=== PATIENT | male | born 1965 | race Caucasian/White ===

== ENCOUNTER 2017-06-02 18:34 | Observation (INO) | payer BC ==
[2017-06-02] MEDS ORDERED: Metoprolol Tartrate TAB* 25 MG PO ONE (19:35)
[2017-06-02] MEDS ORDERED: Nitroglycerin 2% OINT* 1 GM PAK TOPICAL ONE (19:36)
--- NOTE | 2017-06-02 20:12 | RAD ---
INDICATION: Chest pain COMPARISON: Chest x-ray May 24, 2011 TECHNIQUE: Single AP portable view of the chest was obtained. FINDINGS: Image quality is compromised due to the relative inferiority of a portable chest x-ray. The heart and mediastinum exhibit normal size and contour. The lungs are grossly clear. There is no evidence of a large pleural effusion. Visualized bones are normal for the patient's age. IMPRESSION: No radiographic evidence for acute cardiopulmonary abnormality on this portable chest x-ray.
[2017-06-02 20:21] LABS: Hematocrit 47 % (42-52); Hemoglobin 16.5 g/dl (14.0-18.0); Mean Corpuscular HGB Conc 35 g/dl (31-36); Mean Corpuscular Hemoglobin 31 pg (27-31); Mean Corpuscular Volume 89 fL (80-94); Mean Platelet Volume 9 um3 (7.4-10.4); Red Blood Count 5.31 10^6/ul (4.0-5.4); Red Cell Distribution Width 13 % (10.5-15); White Blood Count 6.5 10^3/ul (3.5-10.8)
[2017-06-02 20:35] LABS: Albumin 4.4 g/dL (3.2-5.2); BUN/Creatinine Ratio 16.2 (8-20); Calcium 9.5 mg/dL (8.6-10.3); EGFR African American 142.3 (>60); EGFR Non-African American 110.6 (>60); Globulin 2.3 g/dL (2-4); Potassium 3.6 mmol/L (3.5-5.0); Total Bilirubin 0.8 mg/dL (0.2-1.0); Total Protein 6.7 g/dL (6.4-8.9)
--- NOTE | 2017-06-02 20:54 | RAD ---
INDICATION: Headache and hypertension COMPARISON: None. TECHNIQUE: Contiguous axial sections of the brain were obtained from the skull base to the vertex without contrast. FINDINGS: The ventricles, cisterns and sulci are within normal limits. The edwards-white matter differentiation is adequately maintained and there is no sulcal effacement. No significant focal abnormality or mass effect is present. There is no evidence for intracranial hemorrhage. No significant focal osseous abnormality is present. The visualized portion of the paranasal sinuses and mastoid air cells appear clear. IMPRESSION: Normal CT of the brain.
--- NOTE | 2017-06-02 20:58 | ED ---
Niles Dee Rebecca, scribed for Esteban Buenrostro MD on 06/02/17 at 1928 . Hypertension - HPI Summary HPI Summary: Pt is a 51 y/o M who presents to ED c/o hypertension. When the pt took his BP STAND UP COMEDIAN at [facility] it was 198/102. He then called his PCP and was advised to be evaluated by [facility] ED if his sx did not improve or experienced chest pressure. He then began experiencing chest pressure, which prompted his visit. He c/o bilateral LE heaviness, palpitations, chest pressure, fatigue (1 week) and feeling "off kilter." Pt reports that he has felt off balanced since waking up at approximately 0700 this morning. Denies SOB, abd pain, acute back pain, weakness and vision, speech or hearing changes. PMHx HTN. - History of Current Complaint Chief Complaint: EDHypertension Stated Complaint: HIGH BP Time Seen by Provider: 06/02/17 19:20 Hx Obtained From: Patient Onset/Duration: Still Present Reported Blood Pressure Prior To Arrival: 198/102 Aggravating Factor(s): Nothing Alleviating Factor(s): Nothing Associated Signs & Symptoms: Other: - chest pressure, palpitations - Allergies/Home Medications Allergies/Adverse Reactions: Allergies Allergy/AdvReac Type Severity Reaction Status Date / Time No Known Allergies Allergy Verified 06/02/17 18:36 PMH/Surg Hx/FS Hx/Imm Hx Endocrine/Hematology History: Denies: Hx Diabetes, Hx Thyroid Disease Cardiovascular History: Reports: Hx Hypertension Denies: Hx Pacemaker/ICD Respiratory History: Denies: Hx Asthma, Hx Chronic Obstructive Pulmonary Disease (COPD) GI History: Denies: Hx Ulcer Sensory History: Denies: Hx Hearing Aid Neurological History: Reports: Hx Headaches Psychiatric History: Denies: Hx Panic Disorder - Surgical History Surgery Procedure, Year, and Place: hernia repair; vasectomy; wisdom teeth Infectious Disease History: No Infectious Disease History: Denies: Hx Hepatitis, Hx Human Immunodeficiency Virus (HIV), History Other Infectious Disease, Traveled Outside the [place] in Last 30 Days - Family History Known Family History: Positive: Cardiac Disease, Hypertension, Diabetes - Social History Alcohol Use: Weekly Substance Use Type: Reports: None Smoking Status (MU): Former Smoker Type: Cigarettes Have You Smoked in the Last Year: No Review of Systems Positive: Fatigue, Other - Hypertensive - 198/102 STAND UP COMEDIAN Positive: Other - NEGATIVE: hearing changes Positive: Other - NEGATIVE: hearing changes Positive: Palpitations, Other - Chest pressure Negative: Shortness Of Breath Negative: Abdominal Pain Positive: Other - Bilateral LE heaviness; NEGATIVE: acute back pain Neurological: Other - Off balanced - "off kilter"; NEGATIVE: speech changes Negative: Weakness All Other Systems Reviewed And Are Negative: Yes Physical Exam Triage Information Reviewed: Yes Vital Signs On Initial Exam: Initial Vitals Temp Pulse Resp BP Pulse Ox 98.1 F 86 16 140/99 96 06/02/17 18:36 06/02/17 18:36 06/02/17 18:36 06/02/17 18:36 06/02/17 18:36 Appearance: Positive: Well-Appearing, No Pain Distress Skin: Positive: Warm Head/Face: Positive: Normal Head/Face Inspection Eyes: Positive: EOMI ENT: Positive: Normal ENT inspection Respiratory/Lung Sounds: Positive: Clear to Auscultation, Breath Sounds Present Cardiovascular: Positive: RRR. Negative: Murmur Abdomen Description: Positive: Nontender Musculoskeletal: Positive: Strength/ROM Intact Neurological: Positive: Sensory/Motor Intact, Alert, Oriented to Person Place, Time, CN Intact II-III Psychiatric: Positive: Normal - Delbert Coma Scale Coma Scale Total: 15 Diagnostics - Vital Signs Vital Signs Temp Pulse Resp BP Pulse Ox 06/02/17 19:13 98.5 F 71 15 139/94 95 06/02/17 19:00 66 133/91 06/02/17 18:47 72 153/91 06/02/17 18:46 74 96 06/02/17 18:36 98.1 F 86 16 140/99 96 - Laboratory Lab Results: Lab Results 06/02/17 06/02/17 06/02/17 Range/Units 20:08 20:08 20:08 WBC 6.5 (3.5-10.8) 10^3/ul RBC 5.31 (4.0-5.4) 10^6/ul Hgb 16.5 (14.0-18.0) g/dl Hct 47 (42-52) % MCV 89 (80-94) fL MCH 31 (27-31) pg MCHC 35 (31-36) g/dl RDW 13 (10.5-15) % Plt Count 180 (150-450) 10^3/ul MPV 9 (7.4-10.4) um3 Neut % (Auto) 59.0 (38-83) % Lymph % (Auto) 29.3 (25-47) % [place] % (Auto) 7.9 (1-9) % Eos % (Auto) 2.8 (0-6) % Baso % (Auto) 1.0 (0-2) % Absolute Neuts (auto) 3.8 (1.5-7.7) 10^3/ul Absolute Lymphs (auto) 1.9 (1.0-4.8) 10^3/ul Absolute Monos (auto) 0.5 (0-0.8) 10^3/ul Absolute Eos (auto) 0.2 (0-0.6) 10^3/ul Absolute Basos (auto) 0.1 (0-0.2) 10^3/ul Absolute Nucleated RBC 0.01 10^3/ul Nucleated RBC % 0.1 INR (Anticoag Therapy) 0.94 (0.89-1.11) Sodium 140 (133-145) mmol/L Potassium 3.6 (3.5-5.0) mmol/L Chloride 107 (101-111) mmol/L Carbon Dioxide 26 (22-32) mmol/L Anion Gap 7 (2-11) mmol/L BUN 12 (6-24) mg/dL Creatinine 0.74 (0.67-1.17) mg/dL Est GFR ( Amer) 142.3 (>60) Est GFR (Non-Af Amer) 110.6 (>60) BUN/Creatinine Ratio 16.2 (8-20) Glucose 99 (70-100) mg/dL Lactic Acid (0.5-2.0) mmol/L Calcium 9.5 (8.6-10.3) mg/dL Total Bilirubin 0.80 (0.2-1.0) mg/dL AST 18 (13-39) U/L ALT 10 (7-52) U/L Alkaline Phosphatase 75 (34-104) U/L Troponin I 0.00 (<0.04) ng/mL Total Protein 6.7 (6.4-8.9) g/dL Albumin 4.4 (3.2-5.2) g/dL Globulin 2.3 (2-4) g/dL Albumin/Globulin Ratio 1.9 (1-3) // Range/Units 20:08 WBC (3.5-10.8) 10^3/ul RBC (4.0-5.4) 10^6/ul Hgb (14.0-18.0) g/dl Hct (42-52) % MCV (80-94) fL MCH (27-31) pg MCHC (31-36) g/dl RDW (10.5-15) % Plt Count (150-450) 10^3/ul MPV (7.4-10.4) um3 Neut % (Auto) (38-83) % Lymph % (Auto) (25-47) % [place] % (Auto) (1-9) % Eos % (Auto) (0-6) % Baso % (Auto) (0-2) % Absolute Neuts (auto) (1.5-7.7) 10^3/ul Absolute Lymphs (auto) (1.0-4.8) 10^3/ul Absolute Monos (auto) (0-0.8) 10^3/ul Absolute Eos (auto) (0-0.6) 10^3/ul Absolute Basos (auto) (0-0.2) 10^3/ul Absolute Nucleated RBC 10^3/ul Nucleated RBC % INR (Anticoag Therapy) (0.89-1.11) Sodium (133-145) mmol/L Potassium (3.5-5.0) mmol/L Chloride (101-111) mmol/L Carbon Dioxide (22-32) mmol/L Anion Gap (2-11) mmol/L BUN (6-24) mg/dL Creatinine (0.67-1.17) mg/dL Est GFR ( Amer) (>60) Est GFR (Non-Af Amer) (>60) BUN/Creatinine Ratio (8-20) Glucose (70-100) mg/dL Lactic Acid 0.6 (0.5-2.0) mmol/L Calcium (8.6-10.3) mg/dL Total Bilirubin (0.2-1.0) mg/dL AST (13-39) U/L ALT (7-52) U/L Alkaline Phosphatase (34-104) U/L Troponin I (<0.04) ng/mL Total Protein (6.4-8.9) g/dL Albumin (3.2-5.2) g/dL Globulin (2-4) g/dL Albumin/Globulin Ratio (1-3) Result Diagrams: 06/02/17 20:08 06/02/17 20:08 Lab Statement: Any lab studies that have been ordered have been reviewed, and results considered in the medical decision making process. - Radiology CXR Xray Interpretation: No Acute Changes - No radiographic evidence for acute cardiopulmonary abnormality on this portable chest x-ray. Radiology Interpretation Completed By: Radiologist - CT Brain CT CT Interpretation: No Acute Changes - Normal CT of the brain. CT Interpretation Completed By: Radiologist - EKG 185 Cardiac Rate: NL - 74 bpm EKG Rhythm: Sinus Rhythm EKG Interpretation: No acute changes Re-Evaluation - Re-Evaluation First Eval Re-Evaluation Time: 20:19 Comment: Pt is doing well, reports a very slight pressure in the chest. Hypertension Course/Dx - Course Course Of Treatment: 51 yr old male with chest pain and elevated bp. DW Dr Unger. Admit for further eval obs. Assessment/Plan: Elevated BP noted and advised to f/u with PCP. - Diagnoses Provider Diagnoses: Chest pain - Physician Notifications Discussed Care Of Patient With: Jose Unger Time Discussed With Above Provider: 20:48 Instructed by Provider To: Other - Accepts pt for admission. Discharge - Discharge Plan Condition: Good Disposition: ADMITTED TO [facility] The documentation as recorded by the Niles wood Rebecca accurately reflects the service I personally performed and the decisions made by , Esteban Buenrostro MD.
[2017-06-02] MEDS ORDERED: Acetaminophen TAB* 325 MG PO PRN (21:22)
[2017-06-02] MEDS ORDERED: Ondansetron INJ* 2 MG/ML VIAL IV PRN (21:22)
[2017-06-02] MEDS ORDERED: Aspirin Low Dose CHEW TAB* 81 MG PO ONE (21:28)
--- NOTE | 2017-06-03 00:14 | HP ---
HISTORY AND PHYSICAL: DATE OF ADMISSION: 06/02/17 PRIMARY CARE PROVIDER: None. ATTENDING PHYSICIAN WHILE IN THE HOSPITAL: Dr. Jose Unger * (report dictated by Chris Phillips NP). CHIEF COMPLAINT: 1. Chest pain 2. Elevated blood pressure. HISTORY OF PRESENT ILLNESS: Mr. Iniguez is a 51-year-old male patient who has a history of recent diagnosis of hypertension, ADHD, and history of chronic back pain. He comes in, he says he noticed in March in his urology appointment his blood pressures were in the 170s. He wished to seek follow up with his primary; unfortunately, his primary retired and he had not had a chance to seek care with a new primary. He was at [facility] today at the pharmacy, he thought he would check his blood pressure and it was noted to be 198/107. He called [facility] to try to establish today. They actually got him an appointment for tomorrow and the patient was instructed that should he start having any other discomfort, headache, chest pain, he should be evaluated immediately at the ER. Around 3 o'clock today, he started having some chest pressure. He described it as tightness, someone sitting on his chest that lasted several minutes. He was concerned and he started getting headache. He came into the ER to be evaluated for this. He denies having any recent trips or travel. No calf pain , leg pain. No swelling or tenderness. He denied having any associated nausea or vomiting, no diaphoresis. He says that the headache is now gone and the chest pain is now gone that his blood pressure is little bit better controlled. He says he has not been having any other symptoms, no trouble or difficulty with urination. He said that he has had heaviness with exertion. He came in, he was evaluated, it was noted that he has a former history of smoking. In addition to this, he had a family history, so we were asked to evaluate for admission. PAST MEDICAL HISTORY: Significant for: 1. Hypertension. 2. ADHD. 3. Chronic back pain. PAST SURGICAL HISTORY: He has had: 1. Hernia repair. 2. Vasectomy. MEDICATIONS: His home meds according to the list include: 1. Klonopin 0.5 mg p.o. daily as needed. 2. Oxcarbazepine 600 mg p.o. b.i.d. ALLERGIES TO MEDICATIONS: Include no known drug allergies. FAMILY HISTORY: Mother had a history of [place], CAD, CVA, and hyperlipidemia. The father had history of cancer. SOCIAL HISTORY: He is a former smoker, rarely drinks alcohol. His surrogate decision maker is his significant other, Ellen. REVIEW OF SYSTEMS: There is no documented fever. He denied having any significant weight change. There was no double vision. He denies having any ear discharge. There is no rhinorrhea. There is no sore throat. No thyroid enlargement. He denies chest pain currently. He did have some from my HPI. No shortness of breath, no orthopnea, no nocturnal dyspnea. There was no abdominal pain. No nausea, no vomiting. No dysuria, no frequency. There was no loss of consciousness. No pruritus and no skin ulcerations. Review of 14 systems completed, all others negative. PHYSICAL EXAMINATION GENERAL: At this time, Mr. Iniguez is a 51-year-old male patient. He appears to be well nourished, well developed. He does not appear to be in any acute distress. VITAL SIGNS: Reveal blood pressure 137/88, pulse 61, respirations 15, O2 sat 95 %, temperature 98.5. HEENT: Head: Atraumatic, normocephalic. Eyes: EOMs are intact. Sclerae anicteric. Throat: Oral mucosa appears to be moist. No oropharyngeal erythema. NECK: Supple. LUNGS: Clear to auscultation. No wheezes, rales, or rhonchi. HEART: Sounds S1, S2. Regular rate and rhythm. No murmurs, rubs, or gallops. ABDOMEN: Soft, flat, nontender. Bowel sounds present. EXTREMITIES: Pulses 2+ throughout. Able to move all 4 extremities with 5/5 strength. NEUROLOGIC: The patient is awake, alert, and oriented x3. Tongue midline. Household Chores equal. No gross focal deficits. SKIN: Grossly intact. DIAGNOSTIC STUDIES/LAB DATA: Labs revealed WBC 6.5, RBC of 5.31, hemoglobin 16.5, hematocrit 47, platelet count 180. INR 0.94. Sodium 140, potassium 3.6, chloride of 107, bicarb 26, BUN 12, creatinine 0.74, glucose 99, lactate 0.6, calcium 9.5. Total bili 0.8, AST 18, ALT 10, alk phos 75. Troponin 0. Albumin 4.4. He did have an EKG obtained today, which showed normal sinus rhythm with a rate of 74. No ST elevations or T-wave inversions were noted. He had a chest x-ray obtained today, which showed no radiographic evidence of acute cardiopulmonary abnormality on this portable x-ray. Brain CT showed a normal CT of the brain. EKG is reviewed. His previous EKG does appear to be similar. Old medical records reviewed. ASSESSMENT AND PLAN: Mr. Iniguez is a 51-year-old male patient coming into the ER today with complaints of chest discomfort, not feeling well, and having elevated blood pressure. He will be admitted under observation status for: 1. Chest pain. At this point, he does have significant risk factors for coronary artery disease. My plan is, I will go ahead and give him an aspirin. His chest pain is gone now. I am actually going to remove his nitro paste; if it comes back, we will reapply the paste. He did get a beta evan here in ED. We will continue to monitor him, cycle his troponins, we will check a stress test in the morning, place him on telemetry, serial EKGs, check an A1c, and lipid panel in the morning. 2. Hypertension. It is not well controlled at this point. He will need a primary to follow. I think starting him on Norvasc will be a good choice, as he is very active, I do not want to start him on a beta evan. Could consider hydrochlorothiazide, but again I am going to stick with Norvasc at this point for the patient and start this tomorrow and I will continue to monitor. 3. Attention deficit hyperactivity disorder. Continue meds as prescribed. 4. Chronic back pain. Continue meds as prescribed. P.r.n. Tylenol has been ordered. 5. DVT prophylaxis. He is lower risk. He will be placed on SCDs. 6. Code status. He is full code. 7. Fluids, electrolytes, and nutrition. Heart healthy diet and n.p.o. after midnight. TIME SPENT: On the admission was approximately 60 minutes, greater than half the time was spent [id number] with the patient obtaining my history and physical; the other half time was spent going over the plan of care with the patient and implementing the plan of care. I did discuss the plan of care with my attending, Dr. Unger; he is in agreement. CHRIS PHILLIPS, CHENG [id number]/[facility] #: [id number] [facility]ITAL[facility]
[2017-06-03 05:33] LABS: Hematocrit 46 % (42-52); Hemoglobin 15.9 g/dl (14.0-18.0); Mean Corpuscular HGB Conc 35 g/dl (31-36); Mean Corpuscular Hemoglobin 31 pg (27-31); Mean Corpuscular Volume 89 fL (80-94); Mean Platelet Volume 9 um3 (7.4-10.4); Red Blood Count 5.11 10^6/ul (4.0-5.4); Red Cell Distribution Width 13 % (10.5-15); White Blood Count 5.6 10^3/ul (3.5-10.8)
[2017-06-03 05:49] LABS: BUN/Creatinine Ratio 18.7 (8-20); Calcium 8.9 mg/dL (8.6-10.3); EGFR African American 140.1 (>60); EGFR Non-African American 108.9 (>60); HDL Cholesterol 44.8 mg/dL; Potassium 3.7 mmol/L (3.5-5.0)
[2017-06-03] MEDS ORDERED: amLODIPine TAB* 5 MG PO SCH ×2 (09:00→14:00)
[2017-06-03] MEDS ORDERED: Aspirin Low Dose CHEW TAB* 81 MG PO SCH (09:00)
[2017-06-03] MEDS ORDERED: OXcarbazepine TAB(*) 300 MG PO SCH (09:00)
[2017-06-03 13:20] VITALS: BP 122/75
--- NOTE | 2017-06-03 14:17 | RAD ---
Edited for charges. INDICATION: Chest pain. COMPARISON: No relevant prior exams available on the [facility] [place] for comparison. TECHNIQUE: 10.860 mCi of Tc-99m Myoview were administered IV. SPECT images of the heart were obtained. Later on the same day. Under the direction of Dr. Laughlin, an exercise stress test was performed. The patient achieved a peak heart rate of 150 bpm, 90 % of the age- predicted maximum. Subsequently, the patient was given an IV injection of 25.800 mCi Tc- 99m Myoview. SPECT images of the heart were obtained and a gated wall motion study was performed. FINDINGS: Gated wall motion images were obtained at stress and demonstrate very mild septal and inferior wall hypokinesia. The calculated left ventricular ejection fraction is 58 % at stress. Estimated LEFT ventricular end diastolic volume is 85 mL. TID 0.92. Diaphragmatic attenuation noted. Based on review of the attenuation corrected and non corrected images the distribution of radiopharmaceutical within the myocardium on the stress and rest images is within normal limits. No fixed or reversible regions of hypoperfusion evident. IMPRESSION: 1. Very mild septal and inferior wall hypokinesia. The LEFT ventricular ejection fraction remains within normal range. 2. No compelling evidence for stress-induced ischemia or presence of an infarct. ASSESSMENT: LOW RISK. Based on imaging criteria from ACC/AHA 2002 Guideline Update for the Management of Patients With Chronic Stable Angina Table 23. Noninvasive Risk Stratification. MTDD
--- NOTE | 2017-06-03 14:48 | DCNOTE ---
Subjective Date of Service: 06/03/17 Interval History: No more chest discomfort. He usually walks for an hour a few times a week, never had chest discomfort while walking. Quit smoking 25 yrs ago. Objective Active Medications: Acetaminophen (Tylenol Tab*) 650 mg PO Q4H PRN PRN Reason: FEVER/PAIN Aspirin (Aspirin Low Dose Tab*) 81 mg PO DAILY [facility] Last Admin: 06/03/17 13:54 Dose: 81 mg Ondansetron HCl (Zofran Inj*) 4 mg IV Q6H PRN PRN Reason: NAUSEA Oxcarbazepine (Trileptal Tab(*)) 600 mg PO BID [facility] Last Admin: 06/03/17 13:54 Dose: 600 mg Vital Signs 06/02/17 06/02/17 06/03/17 21:30 22:07 00:09 Temperature 98.4 F 97.9 F Pulse Rate 66 58 62 Respiratory 16 18 16 Rate Blood Pressure 132/82 126/89 126/76 (mmHg) O2 Sat by Pulse 93 94 98 Oximetry 06/03/17 06/03/17 06/03/17 04:06 07:33 11:11 Temperature 98.1 F 98.3 F 98.2 F Pulse Rate 59 62 51 Respiratory 16 16 16 Rate Blood Pressure 127/75 137/83 122/75 (mmHg) O2 Sat by Pulse 97 95 96 Oximetry Appearance: Alert, sitting on the edge of his bed. In good spirits. Looks comfortable. Neck: NL Appearance and Movements; NL JVP, No Thyroid Enlargement, Masses Extremities: No Edema, No Clubbing, Cyanosis, - Skin: No Rash or Ulcers, No Nodules or Sclerosis, - Neurological: Alert and Oriented x 3, NL Sensation Result Diagrams: 06/03/17 04:41 06/03/17 04:41 Additional Lab and Data: Lab Results 06/02/17 06/02/17 06/02/17 Range/Units 20:08 20:08 20:08 WBC 6.5 (3.5-10.8) 10^3/ul RBC 5.31 (4.0-5.4) 10^6/ul Hgb 16.5 (14.0-18.0) g/dl Hct 47 (42-52) % MCV 89 (80-94) fL MCH 31 (27-31) pg MCHC 35 (31-36) g/dl RDW 13 (10.5-15) % Plt Count 180 (150-450) 10^3/ul MPV 9 (7.4-10.4) um3 Neut % (Auto) 59.0 (38-83) % Lymph % (Auto) 29.3 (25-47) % [place] % (Auto) 7.9 (1-9) % Eos % (Auto) 2.8 (0-6) % Baso % (Auto) 1.0 (0-2) % Absolute Neuts (auto) 3.8 (1.5-7.7) 10^3/ul Absolute Lymphs (auto) 1.9 (1.0-4.8) 10^3/ul Absolute Monos (auto) 0.5 (0-0.8) 10^3/ul Absolute Eos (auto) 0.2 (0-0.6) 10^3/ul Absolute Basos (auto) 0.1 (0-0.2) 10^3/ul Absolute Nucleated RBC 0.01 10^3/ul Nucleated RBC % 0.1 INR (Anticoag Therapy) 0.94 (0.89-1.11) Sodium 140 (133-145) mmol/L Potassium 3.6 (3.5-5.0) mmol/L Chloride 107 (101-111) mmol/L Carbon Dioxide 26 (22-32) mmol/L Anion Gap 7 (2-11) mmol/L BUN 12 (6-24) mg/dL Creatinine 0.74 (0.67-1.17) mg/dL Est GFR ( Amer) 142.3 (>60) Est GFR (Non-Af Amer) 110.6 (>60) BUN/Creatinine Ratio 16.2 (8-20) Glucose 99 (70-100) mg/dL Lactic Acid (0.5-2.0) mmol/L Calcium 9.5 (8.6-10.3) mg/dL Total Bilirubin 0.80 (0.2-1.0) mg/dL AST 18 (13-39) U/L ALT 10 (7-52) U/L Alkaline Phosphatase 75 (34-104) U/L Troponin I 0.00 (<0.04) ng/mL Total Protein 6.7 (6.4-8.9) g/dL Albumin 4.4 (3.2-5.2) g/dL Globulin 2.3 (2-4) g/dL Albumin/Globulin Ratio 1.9 (1-3) / Range/Units 20:08 WBC (3.5-10.8) 10^3/ul RBC (4.0-5.4) 10^6/ul Hgb (14.0-18.0) g/dl Hct (42-52) % MCV (80-94) fL MCH (27-31) pg MCHC (31-36) g/dl RDW (10.5-15) % Plt Count (150-450) 10^3/ul MPV (7.4-10.4) um3 Neut % (Auto) (38-83) % Lymph % (Auto) (25-47) % [place] % (Auto) (1-9) % Eos % (Auto) (0-6) % Baso % (Auto) (0-2) % Absolute Neuts (auto) (1.5-7.7) 10^3/ul Absolute Lymphs (auto) (1.0-4.8) 10^3/ul Absolute Monos (auto) (0-0.8) 10^3/ul Absolute Eos (auto) (0-0.6) 10^3/ul Absolute Basos (auto) (0-0.2) 10^3/ul Absolute Nucleated RBC 10^3/ul Nucleated RBC % INR (Anticoag Therapy) (0.89-1.11) Sodium (133-145) mmol/L Potassium (3.5-5.0) mmol/L Chloride (101-111) mmol/L Carbon Dioxide (22-32) mmol/L Anion Gap (2-11) mmol/L BUN (6-24) mg/dL Creatinine (0.67-1.17) mg/dL Est GFR ( Amer) (>60) Est GFR (Non-Af Amer) (>60) BUN/Creatinine Ratio (8-20) Glucose (70-100) mg/dL Lactic Acid 0.6 (0.5-2.0) mmol/L Calcium (8.6-10.3) mg/dL Total Bilirubin (0.2-1.0) mg/dL AST (13-39) U/L ALT (7-52) U/L Alkaline Phosphatase (34-104) U/L Troponin I (<0.04) ng/mL Total Protein (6.4-8.9) g/dL Albumin (3.2-5.2) g/dL Globulin (2-4) g/dL Albumin/Globulin Ratio (1-3) Assess/Plan/Problems-Billing Assessment: - Patient Problems (1) Atypical chest pain Current Visit: Yes Status: Acute Code(s): R07.89 - OTHER CHEST PAIN SNOMED Code(s): 298226345 Comment: Patient to followup with new PCP. I explained the process of evaluating an outpatient for the diagnosis of hypertension. He prefers to wait on anti-hypertensive medicine until a definitive diagnosis is made. (2) ADHD Current Visit: Yes Status: Acute Comment: Continue home med.
--- NOTE | 2017-06-04 06:06 | DS ---
CC: Dr. Dunham * DISCHARGE SUMMARY: DATE OF ADMISSION: DATE OF DISCHARGE: 06/03/17 HISTORY OF PRESENT ILLNESS: This 51-year-old man presented with atypical chest pain and elevated blood pressure. He had a feeling of malaise the day of admission. Recently had been for routine visit at the urologist office and was told his blood pressure was high, he did not have the number. He said all his life, whenever he had been to a doctor's office, says his blood pressure has always been good. As mentioned above, the patient had some malaise. He went to [facility] to get his prescription for his usual ADHD medicine. He has blood pressure measured there and got blood pressure of 198/107. According to the record here, his blood pressure may have been in the 170s in March in the Urology office. He was advised over the phone that if he had headache or chest pain, he should go to the emergency room. About few hours after that, he developed headache and chest pressure and went to the emergency room. He was monitored on the telemetry unit. His EKG was within normal limits. He had 3 troponin levels, all of which were normal. He underwent a nuclear stress test on the day of discharge. This showed a normal left ventricular ejection fraction and no fixed or reversible areas of hypoperfusion. He had no further symptoms in the hospital. He did get doses of oral metoprolol and some nitro paste in the emergency room. His blood pressure the second hospital morning was 137/83. At 11 o'clock, it was 122/75. Following that, he had a stress test at which time he says his blood pressures were little high and following that on return to the medical floor, he received amlodipine 5 mg. I discussed with the patient the process of evaluating in outpatient for the diagnosis of hypertension. He prefers not to take any antihypertensive medication until a definitive diagnosis has been made. He has an appointment with Dr. Dunham on 06/19/17, which we made. FINAL DIAGNOSES: 1. Atypical chest pain. 2. Attention deficit hyperactivity disorder. DISCHARGE MEDICATIONS: 1. Oxcarbazepine 600 mg b.i.d. 2. Klonopin 0.5 mg p.r.n. [id number]/[facility] #: [id number] [facility]
== END 2017-06-03 15:19 | disposition home or self-care (01) ==
LOC: ED 18:34 → MEDTELE 21:20
PROVIDERS: ADMIT Hospitalist; ATTEND Internal Medicine
DX: R07.89 Other chest pain (principal); F90.9 Attention-deficit hyperactivity disorder, unspecified type; I10 Essential (primary) hypertension; R51 Headache; Z87.891 Personal history of nicotine dependence; M54.9 Dorsalgia, unspecified; R00.2 Palpitations; Z79.899 Other long term (current) drug therapy
CPT/HCPCS: 36415; 70450; 71010; 78452; 80048; 80053; 80061; 83036; 83605; 84484; 85025; 85610; 93005; 93017; 96374; 99284; A9270-GY; A9502; G0378

== ENCOUNTER 2017-10-04 14:15 | Observation (INO) | payer BC ==
[2017-10-04] MEDS ORDERED: NS 0.9% 1000 ML* 1,000 ML IV ONE ×2 (14:44→17:28)
[2017-10-04] MEDS ORDERED: methylPREDNISolone 125 MG* 2 ML VIAL IV ONE (14:44)
[2017-10-04] MEDS ORDERED: Albuterol/Ipratropium NEB.SOL* Albuterol 2.5 MG/Ipratropium 0.5 MG 3 ML INH ONE ×2 (14:44→16:04)
[2017-10-04 14:47] LABS: ABS Basophils 0 10^3/ul (0-0.2); ABS Eosinophils 0 10^3/ul (0-0.6); ABS Lymphocytes 0.7 10^3/ul (1.0-4.8); ABS Monocytes 0.5 10^3/ul (0-0.8); ABS Neutrophils 4.1 10^3/ul (1.5-7.7); ABS Nucleated RBC 0.01 10^3/ul; Eosinophil % 0.7 % (0-6); Hematocrit 45 % (42-52); Lymphocyte % 12.3 % (25-47); Mean Corpuscular HGB Conc 36 g/dl (31-36); Mean Corpuscular Hemoglobin 31 pg (27-31); Mean Corpuscular Volume 88 fL (80-94); Mean Platelet Volume 8 um3 (7.4-10.4); Nucleated Red Blood Cells % 0.2; Platelet Count 187 10^3/ul (150-450); Red Blood Count 5.09 10^6/ul (4.0-5.4); Red Cell Distribution Width 13 % (10.5-15); White Blood Count 5.4 10^3/ul (3.5-10.8)
[2017-10-04 15:04] LABS: EGFR Non-African American 105.7 (>60)
--- NOTE | 2017-10-04 16:13 | RAD ---
Indication: Shortness of breath. 2 views of the chest including dual energy PA views demonstrate no mediastinal shift. Heart is of normal size and configuration. Lung de jesus are clear. IMPRESSION: No active cardiopulmonary disease is noted.
[2017-10-04] MEDS ORDERED: Ondansetron INJ* 2 MG/ML VIAL IV ONE (16:48)
[2017-10-04] MEDS ORDERED: Acetaminophen TAB* 325 MG PO PRN (17:28)
[2017-10-04] MEDS ORDERED: Ondansetron INJ* 2 MG/ML VIAL IV PRN (17:28)
[2017-10-04] MEDS ORDERED: Albuterol 2.5 MG/3 ML NEB.SOL* (0.083%) INH PRN (17:28)
[2017-10-04] MEDS ORDERED: NS 0.9% 1000 ML* 1,000 ML IV SCH (17:30)
[2017-10-04] MEDS ORDERED: Iohexol 350* (CONTRAST) 500 ML MDV IV ONE (17:55)
--- NOTE | 2017-10-04 18:18 | RAD ---
Indication: Hypoxia, shortness of breath. Contrast: Administered 82.1 ml of OMNIPAQUE 350 mg/ml CTA of the chest was performed after IV contrast administration. Coronal and sagittal reconstructed images were obtained. The pulmonary arterial tree demonstrates no evidence of filling defects to suggest pulmonary embolus. The aorta demonstrates no evidence of aortic dissection. No aneurysmal dilatation is noted. There is no mediastinal or hilar adenopathy. The trachea and major bronchi appear patent. There is airspace disease in the right suprahilar area of the right lower lobe which may represent pneumonia. Consolidation is noted. No focal nodules are identified. The visualized abdominal organs are otherwise unremarkable. IMPRESSION: No definite evidence of pulmonary embolus is noted. Area of consolidation in the right upper lobe posteriorly.
[2017-10-04] MEDS ORDERED: Azithromycin IV(*) 250 MG in D5W 250 ML BAG* 250 ML IVPB SCH (18:30)
[2017-10-04] MEDS: predniSONE TAB* 20 MG PO SCH (19:13)
[2017-10-04] MEDS: OXcarbazepine TAB(*) 300 MG PO SCH (19:13)
[2017-10-04] MEDS ORDERED: cefTRIAXone(*) 1 GM in NS 0.9% 50 ML* 50 ML IVPB SCH (19:30)
[2017-10-04] MEDS: Albuterol/Ipratropium NEB.SOL* Albuterol 2.5 MG/Ipratropium 0.5 MG 3 ML INH SCH ×2 (19:46→23:35)
[2017-10-04 19:55] LABS: Urine Appearance Clear; Urine Blood Negative (Negative); Urine Color Straw; Urine Ketones Negative (Negative); Urine Protein Negative (Negative); Urine Specific Gravity 1.004 (1.010-1.030); Urine Urobilinogen Negative (Negative)
[2017-10-04] MEDS ORDERED: Acetaminop/Codeine 30 MG TAB* 1 TAB (300 MG/30 MG) PO PRN (21:24)
[2017-10-04] MEDS: Heparin VIAL(*) 5000 UNITS/ML VIAL (FIVE THOUSAND) SUBCUT SCH (21:36)
--- NOTE | 2017-10-05 00:21 | HP ---
CC: Dr. Vides * HISTORY AND PHYSICAL: DATE OF ADMISSION: 10/04/17 PRIMARY CARE PROVIDER: Dr. Vides. ATTENDING PHYSICIAN WHILE IN THE HOSPITAL: Dr. Nico Joshi * (report dictated by Chris Corral NP) CHIEF COMPLAINT: 1. Cough. 2. Shortness of breath. 3. Not feeling well. HISTORY OF PRESENT ILLNESS: Mr. Iniguez is a 51-year-old male patient who comes into the ED today. He says that since last week, he just has not been feeling well. He has had a cough, productive of yellow-type sputum. He says when he lies flat at night, he has been feeling more short of breath, has been waking up at the middle of the night gasping for air. He says that he has been tired, weak, fatigued feeling. He says had kind of aching all over and feeling nauseous. He also has been feeling dizzy. He has had decreased appetite. Denied any nausea, vomiting. He went to his primary, he was started on azithromycin. He was not feeling better. He called his primary today and they referred him to the ER to get a further imaging with an x-ray. He denies having any chest pain with the exception when he is coughing. He denies having any reported fevers, but he does say that he has been feeling chills. He says that he just was not getting any better, so he came in today. He was evaluated here in the ED. It was noted his O2 saturations were right around 92%. There was concern that he may have bronchitis and it was noted that he was wheezing on exam, so we were asked to evaluate for admission. PAST MEDICAL HISTORY: Significant for: 1. Hypertension. 2. ADHD. 3. Chronic back pain. PAST SURGICAL HISTORY: He has had: 1. Hernia repair. 2. Vasectomy. MEDICATIONS: Home meds include: 1. Oxcarbazepine 600 mg p.o. b.i.d. 2. Klonopin 0.5 mg p.o. daily as needed. ALLERGIES TO MEDICATIONS: No known drug allergies. FAMILY HISTORY: Mother had a history of GA, CAD, and CVA. Father had history of cancer. SOCIAL HISTORY: He is a former smoker, he quit 35 years ago. Rarely drinks alcohol. His surrogate decision maker is his girlfriend, Ellen. REVIEW OF SYSTEMS: There is no documented fever here. He has to having chills. He denies have any double vision. There is no ear discharge. There was some rhinorrhea. Denies any congestion. He does admit to having a cough. He does state that he has been aching. He does admit to feeling nauseous now. Denies having any abdominal pain. Denies having any loss of consciousness. No pruritus and no skin ulcerations. Review of 14 systems completed, all others negative. PHYSICAL EXAMINATION GENERAL: At this time, Mr. Iniguez is a 51-year-old male patient. He appears to be well nourished, well developed. He is sitting in the ED stretcher. He does not appear to be in any acute distress. VITAL SIGNS: Blood pressure 152/91, pulse 82, respirations 18, O2 sat 94%, temperature 99. HEENT: Head: Atraumatic, normocephalic. Eyes: EOMs are intact. Sclerae anicteric, not pale. Throat: Oral mucosa appears to be moist. No oropharyngeal erythema. NECK: Supple. LUNGS: He did have some wheezing noted in the lower base, particularly on the right side. He did have rhonchi in the upper lobes. Equal diaphragmatic expansion. HEART: Sounds S1, S2. Regular rate and rhythm. No murmurs, rubs, or gallops. ABDOMEN: Soft, flat, nontender. Bowel sounds present. EXTREMITIES: Pulses 2+ throughout. No peripheral edema. He is moving all 4 extremities with 5/5 strength. NEUROLOGIC: He is awake, alert, oriented x3. No gross focal deficits. SKIN: Intact. DIAGNOSTIC STUDIES/LAB DATA: WBC 5.4, RBC of 5.09, hemoglobin 16.0, hematocrit 45, platelet count 187. Sodium 135, potassium 3.9, chloride 103, bicarb 24, BUN 8, creatinine 0.77, glucose 159, lactate 1.1, calcium 9. Total bili 1.1, AST 20, ALT 10, alk phos 82. Troponin 0. He did have an EKG obtained today, showed normal sinus rhythm, rate of 80. No ST-T elevations or T-wave inversions were noted. Chest x-ray obtained today, impression: No active cardiopulmonary disease. Old medical records reviewed. ASSESSMENT AND PLAN: Mr. Iniguez is a 51-year-old coming into the ER today with complaints of upper respiratory infection symptoms. We were asked to evaluate for admission. He will be admitted under observations status for: 1. Upper respiratory infection. Suspect he probably has a viral bronchitis. His flu swab is pending. It was sent down by the ED, just came back. It is negative. Flu is negative. The patient was noted to be little hypoxic where his O2 sats were right around 90% on room air. He was not feeling well. He started getting dizzy down here, feeling nauseous again after treatment, and we were asked to evaluate. I think he does for the bronchitis. I think we will go ahead and give him fluids, nebs, steroids, put him on azithromycin. We will continue that antibiotics for now that was started outpatient and we will continue with supportive care. He does report having an exposure to asbestos with his job, so I am going to get a CTA of the chest and will continue to follow him. 2. Hypertension. Continue his current medical regimen. His blood pressure is stable here. We will add on an agent. 3. Attention deficit hyperactivity disorder. Continue meds as prescribed. 4. Chronic back pain. Continue meds as prescribed. He has p.r.n. Tylenol available. 5. Code status. Full code. 6. Fluids, electrolytes, and nutrition: He can have a regular diet. TIME SPENT: On the admission was 60 minutes, greater than half the time was spent [id number] with the patient, obtaining my history and physical, the other half of the time was spent going over the plan of care with the patient and implementing plan of care. I did discuss the plan of care with my attending, Dr. Joshi; he is in agreement. CHRIS CORRAL, CHENG [id number]/[facility] #: [id number] GABRIELA
[2017-10-05] MEDS: Heparin VIAL(*) 5000 UNITS/ML VIAL (FIVE THOUSAND) SUBCUT SCH ×2 (05:45→13:24)
[2017-10-05 05:54] LABS: ABS Basophils 0.1 10^3/ul (0-0.2); ABS Eosinophils 0 10^3/ul (0-0.6); ABS Lymphocytes 0.5 10^3/ul (1.0-4.8); ABS Monocytes 0.3 10^3/ul (0-0.8); ABS Neutrophils 4.3 10^3/ul (1.5-7.7); ABS Nucleated RBC 0.02 10^3/ul; Eosinophil % 0 % (0-6); Hematocrit 42 % (42-52); Hemoglobin 14.9 g/dl (14.0-18.0); Mean Corpuscular HGB Conc 36 g/dl (31-36); Mean Corpuscular Hemoglobin 31 pg (27-31); Mean Corpuscular Volume 87 fL (80-94); Mean Platelet Volume 8 um3 (7.4-10.4); Nucleated Red Blood Cells % 0.3; Platelet Count 176 10^3/ul (150-450); Red Cell Distribution Width 13 % (10.5-15); White Blood Count 5.1 10^3/ul (3.5-10.8)
[2017-10-05 05:58] LABS: INR 1.08 (0.77-1.02)
[2017-10-05 06:17] LABS: EGFR Non-African American 152.6 (>60)
[2017-10-05] MEDS ORDERED: Azithromycin TAB* 250 MG PO SCH ×2 (09:00→18:00)
[2017-10-05] MEDS ORDERED: Metoclopramide IV* 5 MG/ML 2 ML VIAL IV PRN (09:16)
[2017-10-05] MEDS: predniSONE TAB* 20 MG PO SCH (09:33)
[2017-10-05] MEDS: OXcarbazepine TAB(*) 300 MG PO SCH (09:33)
[2017-10-05] MEDS ORDERED: predniSONE TAB* 20 MG PO SCH (09:50)
[2017-10-05] MEDS ORDERED: Ketorolac INJ* 30 MG/ML 1 ML VIAL IV PUSH PRN (10:08)
--- NOTE | 2017-10-05 10:08 | PN ---
Progress Note - Progress Note Date of Service: 10/05/17 Note: Discharge Progress Note Primary diagnosis: right upper lobe pneumonia Secondary diagnoses: hypertension ADHD chronic neck/back pain Procedures: none Consultations: none Pertinent laboratory/radiology testing: CTA chest: small RUL infiltrate Microbiology 10/04/17 17:36 Urine Legionella Urinary Antigen - Final 10/04/17 17:36 Urine Streptococcus pneumoniae Ag Screen - Final Negative Legionella Negative S. pneumo Antigen Laboratory Tests 10/04/17 17:19 Influenza A (Rapid) Negative Tests pending upon discharge: none Physical exam: 10/05/17 10/05/17 07:27 08:48 Temperature 36.8 C Pulse Rate 80 Respiratory 16 Rate Blood Pressure 129/90 (mmHg) O2 Sat by Pulse 95 93 Oximetry
[2017-10-05 11:55] VITALS: BP 132/83
[2017-10-05] MEDS ORDERED: Naproxen TAB* 250 MG PO PRN (13:59)
[2017-10-05] MEDS ORDERED: ceFUROXime TAB(*) 250 MG PO SCH (21:00)
--- NOTE | 2017-10-06 02:30 | DS ---
CC: Inna Wade MD. DISCHARGE SUMMARY: DATE OF ADMISSION: 10/04/17 DATE OF DISCHARGE: 10/05/17 PRIMARY DIAGNOSIS: Right upper lobe pneumonia. SECONDARY DIAGNOSES: 1. Hypertension. 2. Attention deficit hyperactivity disorder. 3. Chronic neck and back pain. MEDICATIONS ON DISCHARGE: 1. Azithromycin 250 mg p.o. day for 4 days. 2. Cefuroxime 5 mg p.o. b.i.d. for 6 days. 3. Naproxen 500 mg p.o. b.i.d. p.r.n. for neck pain. 4. Klonopin 0.5 mg p.o. b.i.d. p.r.n. 5. Oxcarbazepine 600 mg p.o. b.i.d. 6. Prednisone 20 mg p.o. q. day for 2 days and then 10 mg p.o. q. day for 2 days and then stop. HOSPITAL COURSE: This 51-year-old man was admitted with dyspnea and cough. The patient's initial chest x-ray was negative but due to severity of his symptoms, he had chest CT angiogram which showed no pulmonary embolism but did show a small area of infiltrate in the right suprahilar area of the right lower lobe. The patient was treated with ceftriaxone and azithromycin for community- acquired pneumonia. He responded quickly and the next day he was tolerating p.o. food and liquid and ambulatory without any dyspnea. He did not require oxygen. Due to his sensation of dyspnea despite absence of wheezing, he was started on prednisone 60 mg p.o. q. day after a dose of Solu-Medrol in the ER. The patient had some irritability and tremors and tingling in his hands that was attributed to prednisone. The patient denies any history of bipolar disorder and states he has ADHD and takes Trileptal for that diagnosis. However , the patient appeared a little bit manic potentially from the prednisone. In any case, the patient is discharged and is advised to follow up with his primary care doctor, Dr. Wade. The prednisone was lowered to 20 mg on discharge and he should receive this as outlined above. He is advised to see his primary care doctor within the next week. DISPOSITION: To home with his . ACTIVITY: As tolerated. DIET: Regular diet. [id number]/[facility] #: [id number] [facility]
== END 2017-10-05 15:00 | disposition home or self-care (01) ==
LOC: ED 14:15 → MED 17:26
PROVIDERS: ADMIT Internal Medicine; ATTEND Internal Medicine
DX: J18.9 Pneumonia, unspecified organism (principal); I10 Essential (primary) hypertension; F90.9 Attention-deficit hyperactivity disorder, unspecified type; M54.2 Cervicalgia; M54.9 Dorsalgia, unspecified; G89.29 Other chronic pain; Z79.899 Other long term (current) drug therapy; R06.02 Shortness of breath; Z87.891 Personal history of nicotine dependence
CPT/HCPCS: 36415; 71020; 71275; 80048; 80053; 81003; 83605; 84484; 85025; 85610; 87086; 87502; 87899; 93005; 94640; 94760; 96361; 96365; 96367; 96375; 96376; 99283; A9270-GY; G0378; J0456; J0696; J1644; J1885; J2405; J2765; J2930; J7512; Q9967

== ENCOUNTER 2019-12-16 12:26 | Emergency (ER) | payer BC ==
[2019-12-16 13:18] VITALS: BP 129/92
--- NOTE | 2019-12-16 14:03 | UC ---
Skin Complaint HPI - HPI Summary HPI Summary: 54 yo male presents with LEFT thumb pain/swelling. He tells me that about 3 weeks ago he accidentally sliced his left thumb - did not seek treatment and area healed well. Last night noticed redness, mild pain, and swelling to base of left thumbnail. Concerned today for infection. Unsure date of last tetanus. Denies fever. - History of Current Complaint Chief Complaint: UCUpperExtremity Time Seen by Provider: 12/16/19 14:03 Stated Complaint: POSSIBLE INFECTION IN THUMB Hx Obtained From: Patient Onset/Duration: Sudden Onset Onset Severity: Mild Current Severity: Mild Pain Intensity: 2 Pain Scale Used: 0-10 Numeric - Allergy/Home Medications Allergies/Adverse Reactions: Allergies Allergy/AdvReac Type Severity Reaction Status Date / Time No Known Allergies Allergy Verified 12/02/19 11:54 Home Medications: Home Medications Cephalexin CAP* [Keflex CAP*] 500 mg PO TID #21 cap 12/16/19 [Rx] PMH/Surg Hx/FS Hx/Imm Hx - Additional Past Medical History Additional PMH: None - Surgical History Surgical History: Yes Surgery Procedure, Year, and Place: RT INGUINAL HERNIA REPAIR, VASECTOMY - Family History Known Family History: Positive: Cardiac Disease, Hypertension, Diabetes - Social History Lives: With Family Alcohol Use: Rare Alcohol Amount: Weekends Substance Use Type: None Smoking Status (MU): Former Smoker Type: Cigarettes Have You Smoked in the Last Year: No When Did the Patient Quit Smoking/Using Tobacco: 25 years ago Review of Systems All Other Systems Reviewed And Are Negative: No Constitutional: Positive: Negative Skin: Positive: Other - Left thumb redness Respiratory: Positive: Negative Cardiovascular: Positive: Negative Neurovascular: Positive: Negative Neurological/Mental Status: Positive: Negative Psychological: Positive: Negative Physical Exam - Summary Physical Exam Summary: GENERAL: NAD. WDWN. No pain distress. SKIN: LEFT THUMB: Base of nail with mild erythema, edema, and ttp. No drainage, streaking, or induration. No fluctuant matter appreciated. CHEST: No accessory muscle use. Breathing comfortably and in no distress. CV: Pulses intact. Cap refill <2seconds MSK: FROM left thumb. NEURO: Alert. PSYCH: Age appropriate behavior. Triage Information Reviewed: Yes Vital Signs: Initial Vital Signs Temp 97.2 F 03/06/20 13:14 Pulse 81 12/16/19 13:14 Resp 18 12/16/19 13:14 BP 129/92 12/16/19 13:14 Pulse Ox 97 12/16/19 13:14 Vital Signs Reviewed: Yes Course/Dx - Course Course Of Treatment: tdap updated today. Previous laceration appears to be completely healed with only faint linear scar. Paronychia at base of thumb - rx for keflex and advised warm soaks. - Diagnoses Provider Diagnosis: Paronychia Discharge ED - Sign-Out/Discharge Documenting (check all that apply): Patient Departure All imaging exams completed and their final reports reviewed: No Studies - Discharge Plan Condition: Stable Disposition: HOME Prescriptions: Cephalexin CAP* [Keflex CAP*] 500 mg PO TID #21 cap Patient Education Materials: Paronychia (ED) Referrals: Inna Wade MD [Primary Care Provider] - Additional Instructions: If you develop a fever, shortness of breath, chest pain, new or worsening symptoms - please call your PCP or go to the ED immediately. Apply a warm compress and/or warm salt water soaks a few times a day - Billing Disposition and Condition Condition: STABLE Disposition: Home
[2019-12-16] MEDS ORDERED: Tetan/Diph/Pertus SYR(Tdap)* 0.5 ML SYR(BOOSTRIX) use SYR contains LATEX IM ONE (14:14)
== END 2019-12-16 14:25 | disposition home or self-care (01) ==
LOC: UCEAST 12:26
DX: L03.012 Cellulitis of left finger (principal); Z87.891 Personal history of nicotine dependence
CPT/HCPCS: 90471; 90715; 99212; G0463